=== PATIENT | male | born 1995 | race Caucasian/White ===

== ENCOUNTER 2019-10-02 14:44 | Outpatient (CLI) | payer OTHER ==
--- NOTE | 2019-10-02 15:46 | XRAY Report ---
PROCEDURE: Ribs 3 View BILAT INDICATIONS: PLEURODYNIA TECHNIQUE: 4 views of the left ribs were acquired. COMPARISON: None. FINDINGS: Surgical changes and devices: None. Bones and chest wall: No fractures or dislocations. No suspicious bony lesions. Overlying soft tis sues appear unremarkable. Lungs and pleura: The visualized lung appears clear. No pleural effusions or pneumothorax are visib le. IMPRESSION: No radiographically visible rib fracture identified Reviewed by: Jesus Peralta MD on 10/02/2019 3:44 PM PDT Approved by: Jesus Peralta MD on 10/02/2019 3:44 PM PDT Station ID: [id number]
--- NOTE | 2019-10-02 15:56 | XRAY Report ---
PROCEDURE: Chest 2 View X-Ray INDICATIONS: PLEURODYNIA TECHNIQUE: 2 view(s) of the chest. COMPARISON: None. FINDINGS: Surgical changes and devices: None. Lungs and pleura: No pleural effusions or pneumothorax. Lungs are clear. Mediastinum: Mediastinal contours are normal. Heart size is normal. Bones and chest wall: No suspicious bony abnormalities. Soft tissues appear unremarkable. IMPRESSION: No acute disease Reviewed by: Jesus Peralta MD on 10/02/2019 3:55 PM PDT Approved by: Jesus Peralta MD on 10/02/2019 3:55 PM PDT Station ID: [id number]
== END 2019-10-02 14:45 | disposition home or self-care (01) ==
LOC: DI.S 14:44
PROVIDERS: ATTEND Nurse Practitioner Family
DX: R07.81 Pleurodynia (principal)
CPT/HCPCS: 71046; 71110